=== PATIENT | male | born 1990 | race Caucasian/White ===

== ENCOUNTER 2016-06-05 22:07 | Emergency (ER) | payer BC ==
[2016-06-05] MEDS ORDERED: Ketorolac 60 MG/2 ML SDV IM ONE (22:19)
--- NOTE | 2016-06-05 22:20 | EDM.PDOC ---
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 Past medical history: As per history of present illness and as reviewed below otherwise noncontributory. Surgical history: As per history of present illness and as reviewed below otherwise noncontributory. Social history: No reported history of drug or alcohol abuse. Family history: As per history of present illness and as reviewed below otherwise noncontributory. Physical exam: HEENT: Atraumatic, normocephalic, pupils reactive, negative for conjunctival pallor or scleral icterus, mucous membranes moist, throat clear, neck supple, nontender, trachea midline. Lungs: Clear to auscultation, breath sounds equal bilaterally, chest nontender. Heart: S1S2, regular, negative for clicks, rubs, or JVD. Abdomen: Soft, nondistended, nontender. Negative for masses or hepatosplenomegaly. Negative for costovertebral tenderness. Pelvis: Stable nontender. Genitourinary: Deferred. Rectal: Deferred. Extremities: Atraumatic, negative for cords or calf pain. Neurovascular unremarkable. No radiculopathy with 30 of straight leg raise Neuro: Awake, alert, oriented. Cranial nerves II through XII unremarkable. Cerebellum unremarkable. Motor and sensory unremarkable throughout. Exam nonfocal. No footdrop or saddle anesthesia Diagnostics: [] Lumbar spine 3 views Therapeutics: [] Toradol ordered patient declined Patient declines muscle relaxant Ice ibuprofen Impression: [] Back pain Paraspinous muscle spasm Definitive disposition and diagnosis as appropriate pending reevaluation and review of above. Lower Back Pain Score (Numeric/FACES): 7 - Related Data Allergies Allergy/AdvReac Type Severity Reaction Status Date / Time Anesthesia Allergy Seizure Uncoded 06/05/16 22:11 Home Meds: Home Meds . [No Known Home Meds] 12/09/15 [History] Past Medical History - Past Health History Medical/Surgical History: Denies Medical/Surgical History Social & Family History - Family History Family Medical History: Noncontributory - Tobacco Use Smoking Status *Q: Former Smoker - Recreational Drug Use Recreational Drug Use: No ED ROS GENERAL - Review of Systems Review Of Systems: ROS reveals no pertinent complaints other than HPI. ED EXAM, GENERAL - Physical Exam Exam: See Below Course - Vital Signs Last Recorded V/S: Last Vital Signs Temp 36.7 C 06/05/16 22:12 Pulse 98 06/05/16 22:12 Resp 18 06/05/16 22:12 BP 144/85 H 06/05/16 22:12 Pulse Ox 96 06/05/16 22:12 - Orders/Labs/Meds Orders: Active Orders 24 hr Category Date Time Status Lumbar Spine 2 or 3V [CR] Stat Exams 06/05/16 22:19 Taken Meds: Medications Discontinued Medications Generic Name Dose Route Start Last Admin Trade Name Emily PRN Reason Stop Dose Admin Ketorolac Tromethamine 60 mg 06/05/16 22:19 06/05/16 22:25 Toradol IM 06/05/16 22:20 Not Given ONETIME ONE Departure - Departure Time of Disposition: 23:03 Disposition: Home, Self-Care 01 Condition: good Clinical Impression: Spasm of lumbar paraspinous muscle Forms: ED Department Discharge Additional Instructions: Ice 20 minute intervals 3 times daily 7-10 days Ibuprofen 400 mg 3 times daily 7-10 days Return if symptoms persist or worsen or new concerning symptomatology develops Followup with primary care in 2 weeks The following information is given to patients seen in the emergency department who are being discharged to home. This information is to outline your options for follow-up care. We provide all patients seen in our emergency department with a follow-up referral. The need for follow-up, as well as the timing and circumstances, are variable depending upon the specifics of your emergency department visit. If you don't have a primary care physician on staff, we will provide you with a referral. We always advise you to contact your personal physician following an emergency department visit to inform them of the circumstance of the visit and for follow-up with them and/or the need for any referrals to a consulting specialist. The emergency department will also refer you to a specialist when appropriate. This referral assures that you have the opportunity for follow-up care with a specialist. All of these measure are taken in an effort to provide you with optimal care, which includes your follow-up. Under all circumstances we always encourage you to contact your private physician who remains a resource for coordinating your care. When calling for follow-up care, please make the office aware that this follow-up is from your recent emergency room visit. If for any reason you are refused follow-up, please contact the [facility] emergency department at and asked to speak to the emergency department charge nurse. - My Orders Last 24 Hours: My Active Orders 06/05/16 22:19 Lumbar Spine 2 or 3V [CR] Stat - Assessment/Plan Last 24 Hours: My Active Orders 06/05/16 22:19 Lumbar Spine 2 or 3V [CR] Stat
[2016-06-05 23:34] VITALS: BP 112/67
--- NOTE | 2016-06-06 16:18 | CR ---
EXAM DATE: 06/05/16 PATIENT'S AGE: 26 Patient: RON MORALES Facility: [place], [place] Site . Site : 1990 Study: XRay Spine Lumbar [id number]/2/2017 10:48:18 PM Ordering Physician: Doctor Smith Final Report: INDICATION: pain after carrying an heavy object TECHNIQUE: Lumbar spine 3 views. COMPARISON: None. FINDINGS: Bones: Alignment is normal. No fractures or bone lesions. Joint spaces: Disc spaces are normal. Facet joints are normal. Soft tissues: Negative. IMPRESSION: Negative lumbar spine. Dictated by: Sean Gabriel MD @ 06/05/2016 22:49:22 (Electronic Signature) Report Signed by Proxy and Original Signed Document filed in the Medical Record. [facility]
== END 2016-06-05 23:33 | disposition home or self-care (01) ==
LOC: MW.ED 22:07
DX: M62.830 Muscle spasm of back (principal); M54.5 Low back pain; Z87.891 Personal history of nicotine dependence
CPT/HCPCS: 72100; 72100-26; 99283

== ENCOUNTER 2016-08-18 04:15 | Emergency (ER) | payer BC, OTHER ==
--- NOTE | 2016-08-18 04:46 | EDM.PDOC ---
ED HPI GENERAL MEDICAL PROBLEM - General Chief Complaint: Upper Extremity Injury/Pain Stated Complaint: LEFT ELBOW PAIN Time Seen by Provider: 08/18/16 04:37 - History of Present Illness INITIAL COMMENTS - FREE TEXT/NARRATIVE: HISTORY AND PHYSICAL: History of present illness: The patient is a 26-year-old male who is healthy and was in his usual state of good health when he was at work this morning and a cast iron door swung and hit him on his left elbow and proximal forearm area. The patient did not get hit in the head neck or back and did not fall down pass out or black out. The patient complains of pain and swelling localized to the left elbow and proximal forearm area and has no distal wrist or hand pain and no neurosensory changes distally. He has no proximal humerus pain no condyle tenderness and no clavicular tenderness on the left. The patient has no other extremity complaints and has no chest pain shortness of breath nausea or vomiting. Patient took 600 mg of ibuprofen prior to coming here. The patient is right-hand dominant Review of systems: As per history of present illness and below otherwise all systems reviewed and negative. Past medical history: As per history of present illness and as reviewed below otherwise noncontributory. Surgical history: As per history of present illness and as reviewed below otherwise noncontributory. Social history: No reported history of drug or alcohol abuse. Family history: As per history of present illness and as reviewed below otherwise noncontributory. Physical exam: General: Well-developed well-nourished male who is nontoxic and speaking clearly in the ED. Vital signs have been reviewed by me HEENT: Atraumatic, normocephalic, negative for conjunctival pallor or scleral icterus, mucous membranes moist, throat clear, neck supple, nontender, trachea midline. Lungs: Clear to auscultation, breath sounds equal bilaterally, chest nontender. Heart: S1S2, regular rate and rhythm no overt murmurs Abdomen: Soft, nondistended, nontender. NABS Pelvis: Deferred Genitourinary: Deferred. Rectal: Deferred. Extremities: Atraumatic except for the ulnar surface of the proximal forearm where there is swelling and tenderness and some scattered abrasions as well as tenderness at the olecranon. There are no palpable bony deformities appreciated. There is no radial head tenderness nor is there any distal wrist and tenderness or bony deformities. The legs are negative for cords or calf pain. Neurovascular unremarkable. Neuro: Awake, alert, oriented. Cranial nerves II through XII unremarkable. Cerebellum unremarkable. Motor and sensory unremarkable throughout. Exam nonfocal. Diagnostics: X-ray of the left forearm and elbow Therapeutics: Sling--pt drove himself and took ibuprofen before coming here Impression: Excision of left forearm and elbow status post blunt trauma Definitive disposition and diagnosis as appropriate pending reevaluation and review of above. left elbow Pain Score (Numeric/FACES): 8 - Related Data Allergies Allergy/AdvReac Type Severity Reaction Status Date / Time Anesthesia Allergy Seizure Uncoded 06/05/16 22:11 Home Meds: Home Meds . [No Known Home Meds] 12/09/15 [History] Past Medical History - Past Health History Medical/Surgical History: Denies Medical/Surgical History HEENT History: Reports: None Cardiovascular History: Reports: None Respiratory History: Reports: None Gastrointestinal History: Reports: None Genitourinary History: Reports: None Musculoskeletal History: Reports: None Neurological History: Reports: None Psychiatric History: Reports: None Endocrine/Metabolic History: Reports: None Hematologic History: Reports: None Immunologic History: Reports: None Oncologic (Cancer) History: Reports: None Dermatologic History: Reports: None - Infectious Disease History Infectious Disease History: Reports: None - Past Surgical History HEENT Surgical History: Reports: Tonsillectomy Social & Family History - Family History Family Medical History: Noncontributory - Tobacco Use Smoking Status *Q: Current Every Day Smoker Years of Tobacco use: 1 Packs/Tins Daily: 0.5 - Caffeine Use Caffeine Use: Reports: Soda Caffeine Use Comment: 1cup every other day - Recreational Drug Use Recreational Drug Use: No Review of Systems - Review of Systems Review Of Systems: ROS reveals no pertinent complaints other than HPI. Trauma Exam - Physical Exam Exam: See Below (See dictation) Course - Vital Signs Last Recorded V/S: Last Vital Signs Temp 36.5 C 08/18/16 04:20 Pulse 84 08/18/16 04:20 Resp 16 08/18/16 04:20 BP 138/87 08/18/16 04:20 Pulse Ox 97 08/18/16 04:20 - Orders/Labs/Meds Orders: Active Orders 24 hr Category Date Time Status Elbow Min 3V Lt [CR] Stat Exams 08/18/16 04:37 Taken Forearm 2V Lt [CR] Stat Exams 08/18/16 04:43 Taken DME for Discharge [COMM] Stat Oth 08/18/16 06:09 Ordered Departure - Departure Time of Disposition: 06:10 Disposition: Home, Self-Care 01 Condition: good Clinical Impression: Left elbow contusion Qualifiers: Encounter type: initial encounter Qualified Code(s): S50.02XA - Contusion of left elbow, initial encounter Contusion of left forearm Qualifiers: Encounter type: initial encounter Qualified Code(s): S50.12XA - Contusion of left forearm, initial encounter - Discharge Information Forms: ED Department Discharge Additional Instructions: The following information is given to patients seen in the emergency department who are being discharged to home. This information is to outline your options for follow-up care. We provide all patients seen in our emergency department with a follow-up referral. The need for follow-up, as well as the timing and circumstances, are variable depending upon the specifics of your emergency department visit. If you don't have a primary care physician on staff, we will provide you with a referral. We always advise you to contact your personal physician following an emergency department visit to inform them of the circumstance of the visit and for follow-up with them and/or the need for any referrals to a consulting specialist. The emergency department will also refer you to a specialist when appropriate. This referral assures that you have the opportunity for followup care with a specialist. All of these measure are taken in an effort to provide you with optimal care, which includes your followup. Under all circumstances we always encourage you to contact your private physician who remains a resource for coordinating your care. When calling for followup care, please make the office aware that this follow-up is from your recent emergency room visit. If for any reason you are refused follow-up, please contact the [facility] emergency department at and ask to speak to the emergency department charge nurse. [facility] Specialty Care--Orthopedic clinic Professional Building [address] [place] [id number] [facility] Primary care- Internal Medicine and Family [place] [id number] [place] [id number] Use a sling for support next few days ice and elevate the area. Use over-the- counter Tylenol or ibuprofen for pain or use the Ultram prescribed to you tonight. Return to ER as needed and as discussed. Please followup with orthopedics using resources given to above and with your occupational health safety companion - My Orders Last 24 Hours: My Active Orders 08/18/16 04:37 Elbow Min 3V Lt [CR] Stat 08/18/16 04:43 Forearm 2V Lt [CR] Stat 08/18/16 06:09 DME for Discharge [COMM] Stat - Assessment/Plan Last 24 Hours: My Active Orders 08/18/16 04:37 Elbow Min 3V Lt [CR] Stat 08/18/16 04:43 Forearm 2V Lt [CR] Stat 08/18/16 06:09 DME for Discharge [COMM] Stat
[2016-08-18 06:35] VITALS: BP 128/67
--- NOTE | 2016-08-18 18:17 | CR ---
EXAM DATE: 08/18/16 PATIENT'S AGE: 26 Patient: RON MORALES Facility: [place], [place] Site . Site : 1990 Study: XRay Extremity Left Forearm [id number]/15/2017 5:18:28 AM Ordering Physician: Hector Candelaria Final Report: INDICATION: left elbow pain, hit by a door at work INDICATION: Injury. TECHNIQUE: Left forearm, two views. COMPARISON: None FINDINGS: Bones: Alignment is normal. No fractures or bone lesions. Joint spaces: Unremarkable. Soft tissues: Unremarkable. IMPRESSION: There is no acute bone abnormality. Dictated by Armando Kumar MD @ 08/18/2016 6:05:21 AM Dictated by: Armando Kumar MD @ 08/18/2016 06:05:47 (Electronic Signature) Report Signed by Proxy. [facility]
--- NOTE | 2016-08-18 18:18 | CR ---
EXAM DATE: 08/18/16 PATIENT'S AGE: 26 Patient: RON MORALES Facility: [place], [place] Site . Site : 1990 Study: XRay Extremity Left Elbow [id number]/15/2017 5:18:48 AM Ordering Physician: Hector Candelaria Final Report: INDICATION: left elbow pain, hit by a door at work INDICATION: Pain after injury. TECHNIQUE: Left elbow, three views. COMPARISON: None FINDINGS: Bones: Alignment is normal. No fractures or bone lesions. Joint spaces: Unremarkable. Soft tissues: Unremarkable. IMPRESSION: There is no fracture identified at the left elbow. Dictated by Armando Kumar MD @ 08/18/2016 6:07:07 AM Dictated by: Armando Kumar MD @ 08/18/2016 06:07:16 (Electronic Signature) Report Signed by Proxy. [facility]
== END 2016-08-18 06:30 | disposition home or self-care (01) ==
LOC: MW.ED 04:15
DX: S50.02XA Contusion of left elbow, initial encounter (principal); S50.12XA Contusion of left forearm, initial encounter; F17.210 Nicotine dependence, cigarettes, uncomplicated; Z88.4 Allergy status to anesthetic agent; Z98.890 Other specified postprocedural states; Y99.0 Civilian activity done for income or pay; W22.8XXA Striking against or struck by other objects, initial encounter
CPT/HCPCS: 73080-26-LT; 73080-LT; 73090-26-LT; 73090-LT; 99282; 99283

== ENCOUNTER 2016-09-22 18:18 | Emergency (ER) | payer BC, OTHER ==
--- NOTE | 2016-09-22 18:42 | EDM.PDOC ---
ED HPI GENERAL MEDICAL PROBLEM - General Chief Complaint: General Stated Complaint: PT HAS INFECTION INSIDE MOUTH Time Seen by Provider: 09/22/16 18:40 Source of Information: Reports: Patient History Limitations: Reports: No Limitations - History of Present Illness INITIAL COMMENTS - FREE TEXT/NARRATIVE: History of present illness: [26-year-old male comes in status post cracking his lower left molar approximately #17/18. Patient indicates that he has swelling and pain inside at his gumline Review of systems: As per history of present illness and below otherwise all systems reviewed and negative. Past medical history: As per history of present illness and as reviewed below otherwise noncontributory. Surgical history: As per history of present illness and as reviewed below otherwise noncontributory. Social history: No reported history of drug or alcohol abuse. Family history: As per history of present illness and as reviewed below otherwise noncontributory. Physical exam: HEENT: Left-sided facial swelling with erythema at the gumline normocephalic, pupils reactive, negative for conjunctival pallor or scleral icterus, mucous membranes moist, throat clear, neck supple, nontender, trachea midline. Lungs: Clear to auscultation, breath sounds equal bilaterally, chest nontender. Heart: S1S2, regular, negative for clicks, rubs, or JVD. Abdomen: Soft, nondistended, nontender. Negative for masses or hepatosplenomegaly. Negative for costovertebral tenderness. Pelvis: Stable nontender. Genitourinary: Deferred. Rectal: Deferred. Extremities: Atraumatic, negative for cords or calf pain. Neurovascular unremarkable. Neuro: Awake, alert, oriented. Cranial nerves II through XII unremarkable. Cerebellum unremarkable. Motor and sensory unremarkable throughout. Exam nonfocal. Diagnostics: [] Therapeutics: [] Impression: [Dental abscess,] Plan: [Antibiotic pain med follow-up with dentist] Definitive disposition and diagnosis as appropriate pending reevaluation and review of above. - Related Data Allergies Allergy/AdvReac Type Severity Reaction Status Date / Time Anesthesia Allergy Seizure Uncoded 06/05/16 22:11 Home Meds: Home Meds Amoxicillin/Potassium Clav [Augmentin 875-125 Tablet] 1 each PO BID #20 tablet 09/22/16 [Rx] Past Medical History - Past Health History Medical/Surgical History: Denies Medical/Surgical History HEENT History: Reports: None Cardiovascular History: Reports: None Respiratory History: Reports: None Gastrointestinal History: Reports: None Genitourinary History: Reports: None Musculoskeletal History: Reports: None Neurological History: Reports: None Psychiatric History: Reports: None Endocrine/Metabolic History: Reports: None Hematologic History: Reports: None Immunologic History: Reports: None Oncologic (Cancer) History: Reports: None Dermatologic History: Reports: None - Infectious Disease History Infectious Disease History: Reports: None - Past Surgical History HEENT Surgical History: Reports: Tonsillectomy Social & Family History - Family History Family Medical History: Noncontributory - Tobacco Use Smoking Status *Q: Current Every Day Smoker Years of Tobacco use: 1 Packs/Tins Daily: 0.5 - Caffeine Use Caffeine Use: Reports: Soda Caffeine Use Comment: 1cup every other day - Recreational Drug Use Recreational Drug Use: No ED ROS GENERAL - Review of Systems Review Of Systems: See Below (History of present illness) ED EXAM, GENERAL - Physical Exam Exam: See Below (See history of present illness) Departure - Departure Time of Disposition: 18:41 Disposition: Home, Self-Care 01 Condition: Good Clinical Impression: Dental abscess - Discharge Information Prescriptions: Amoxicillin/Potassium Clav [Augmentin 875-125 Tablet] 1 each PO BID #20 tablet Forms: ED Department Discharge Additional Instructions: The following information is given to patients seen in the emergency department who are being discharged to home. This information is to outline your options for follow-up care. We provide all patients seen in our emergency department with a follow-up referral. The need for follow-up, as well as the timing and circumstances, are variable depending upon the specifics of your emergency department visit. If you don't have a primary care physician on staff, we will provide you with a referral. We always advise you to contact your personal physician following an emergency department visit to inform them of the circumstance of the visit and for follow-up with them and/or the need for any referrals to a consulting specialist. The emergency department will also refer you to a specialist when appropriate. This referral assures that you have the opportunity for follow-up care with a specialist. All of these measure are taken in an effort to provide you with optimal care, which includes your follow-up. Under all circumstances we always encourage you to contact your private physician who remains a resource for coordinating your care. When calling for follow-up care, please make the office aware that this follow-up is from your recent emergency room visit. If for any reason you are refused follow-up, please contact the [facility] Emergency Department at and asked to speak to the emergency department charge nurse. Take medication as directed Follow-up with PCP in 1-2 days Follow-up with the dentist BARBY Return to ED as needed as discussed
[2016-09-22] MEDS ORDERED: Lidocaine 2% Viscous Solution 15 ML Cup PO ONE (18:46)
[2016-09-22] MEDS ORDERED: Benzocaine 20% Topical Spray UD MUCMEM ONE (18:46)
[2016-09-22 19:12] VITALS: BP 130/76
== END 2016-09-22 19:05 | disposition home or self-care (01) ==
LOC: MW.ED 18:18
DX: K04.7 Periapical abscess without sinus (principal); F17.210 Nicotine dependence, cigarettes, uncomplicated; Z98.890 Other specified postprocedural states; Z88.4 Allergy status to anesthetic agent
CPT/HCPCS: 99282; 99283

== ENCOUNTER 2017-12-09 19:25 | Emergency (ER) | payer BC ==
--- NOTE | 2017-12-09 19:36 | EDM.PDOC ---
ED HPI GENERAL MEDICAL PROBLEM - General Chief Complaint: General Stated Complaint: FLU LIKE SYMTOMS Time Seen by Provider: 12/09/17 19:35 Source of Information: Reports: Patient History Limitations: Reports: No Limitations - History of Present Illness INITIAL COMMENTS - FREE TEXT/NARRATIVE: HISTORY AND PHYSICAL: History of present illness: Patient is a 27-year-old male who presents to the emergency room with complaints of cough, chest congestion, chest pain body aches and diarrhea. He states he feels like he has the flu. Has not currently been around anyone who has been sick. Patient is a daily smoker. States his chest pain is "throughout" chest only when he coughs, not constant. Pain does not radiate. He denies any fever, chills, abdominal pain, nausea, vomiting, dysuria or constipation. Review of systems: As per history of present illness and below otherwise all systems reviewed and negative. Past medical history: As per history of present illness and as reviewed below otherwise noncontributory. Surgical history: As per history of present illness and as reviewed below otherwise noncontributory. Social history: No reported history of drug or alcohol abuse. Family history: As per history of present illness and as reviewed below otherwise noncontributory. Physical exam: General: Well-developed and well-nourished 27-year-old male. Alert and oriented. Nontoxic appearing and in no acute distress. HEENT: Atraumatic, normocephalic, pupils equal and reactive bilaterally, negative for conjunctival pallor or scleral icterus, mucous membranes moist, throat clear, neck supple, nontender, TMs normal bilaterally, trachea midline. No drooling or trismus noted. No meningeal signs Lungs: Fine expiratory wheezing noted bilaterally, breath sounds equal bilaterally, chest nontender. Dry cough noted Heart: S1S2, regular rate and rhythm without overt murmur Abdomen: Soft, nondistended, nontender. Negative for masses or hepatosplenomegaly. Negative for costovertebral tenderness. Pelvis: Stable nontender. Genitourinary: Deferred. Rectal: Deferred. Skin: Intact, warm, dry. No lesions or rashes noted. Extremities: Atraumatic, negative for cords or calf pain. Neurovascular unremarkable. Neuro: Awake, alert, oriented. Cranial nerves II through XII unremarkable. Cerebellum unremarkable. Motor and sensory unremarkable throughout. Exam nonfocal. Notes: Patient's symptoms of body aches, diarrhea, and cough do sound viral in nature. His vital signs are stable. Will do a chest x-ray and DuoNeb. Agreeable to plan of care. Chest x-ray shows no evidence of pneumonia or infiltrate. Patient she does feel somewhat better after the DuoNeb. Still does have some wheezing. Due to the patient's symptoms and history of smoking I am going to treat him with a Z-Randall and Medrol Dosepak. When necessary albuterol inhaler. Patient is requesting a note for work for today and tomorrow and is eager to be discharged. Vital signs remain stable. We discussed signs and symptoms that would prompt him to return to the emergency room along with supportive care measures. He voices understanding and is agreeable to plan of care. Denies any further questions or concerns at this time. Diagnostics: CXR Therapeutics: Duo Jostin Prescription: Zpack Medrol Dosepak Albuterol Inhaler Impression: Bronchitis Plan: 1. Please stop smoking. 2. Take the medications as prescribed. 3. Follow-up with your primary care provider in the next 1-2 days. Return to the ED as needed and as discussed. Definitive disposition and diagnosis as appropriate pending reevaluation and review of above. chest Pain Score (Numeric/FACES): 5 - Related Data Allergies Allergy/AdvReac Type Severity Reaction Status Date / Time Anesthesia Allergy Seizure Uncoded 12/09/17 19:40 Home Meds: Home Meds Multivitamin [Multi-Vitamin Daily] 1 each PO DAILY 12/09/17 [History] Past Medical History - Past Health History Medical/Surgical History: Denies Medical/Surgical History HEENT History: Reports: None Cardiovascular History: Reports: None Respiratory History: Reports: None Gastrointestinal History: Reports: None Genitourinary History: Reports: None Musculoskeletal History: Reports: None Neurological History: Reports: None Psychiatric History: Reports: None Endocrine/Metabolic History: Reports: None Hematologic History: Reports: None Immunologic History: Reports: None Oncologic (Cancer) History: Reports: None Dermatologic History: Reports: None - Infectious Disease History Infectious Disease History: Reports: None - Past Surgical History HEENT Surgical History: Reports: Tonsillectomy Social & Family History - Family History Family Medical History: Noncontributory - Caffeine Use Caffeine Use: Reports: Coffee Caffeine Use Comment: 1cup every other day ED ROS GENERAL - Review of Systems Review Of Systems: ROS reveals no pertinent complaints other than HPI. ED EXAM, GENERAL - Physical Exam Exam: See Below (See dictation) Course - Vital Signs Last Recorded V/S: Last Vital Signs Temp 97.5 F 12/09/17 19:35 Pulse 119 H 12/09/17 19:35 Resp 16 12/09/17 19:35 BP 151/97 H 12/09/17 19:35 Pulse Ox 96 12/09/17 20:00 - Orders/Labs/Meds Orders: Active Orders 24 hr Category Date Time Status RT Aerosol Therapy [RC] ASDIRECTED Care 12/09/17 19:39 Active Chest 2V [CR] Stat Exams 12/09/17 19:39 Taken Meds: Medications Discontinued Medications Generic Name Dose Route Start Last Admin Trade Name Freq PRN Reason Stop Dose Admin Albuterol/Ipratropium 3 ml 12/09/17 19:39 12/09/17 19:55 Duoneb 3.0-0.5 Mg/3 Ml NEB 12/09/17 19:40 3 ml ONETIME ONE Administration Departure - Departure Time of Disposition: 20:41 Disposition: Home, Self-Care 01 Clinical Impression: Bronchitis - Discharge Information Instructions: Upper Respiratory Infection, Adult, [id number] Referrals: PCP,None [Primary Care Provider] - Forms: ED Department Discharge Additional Instructions: The following information is given to patients seen in the emergency department who are being discharged to home. This information is to outline your options for follow-up care. We provide all patients seen in our emergency department with a follow-up referral. The need for follow-up, as well as the timing and circumstances, are variable depending upon the specifics of your emergency department visit. If you don't have a primary care physician on staff, we will provide you with a referral. We always advise you to contact your personal physician following an emergency department visit to inform them of the circumstance of the visit and for follow-up with them and/or the need for any referrals to a consulting specialist. The emergency department will also refer you to a specialist when appropriate. This referral assures that you have the opportunity for follow-up care with a specialist. All of these measure are taken in an effort to provide you with optimal care, which includes your follow-up. Under all circumstances we always encourage you to contact your private physician who remains a resource for coordinating your care. When calling for follow-up care, please make the office aware that this follow-up is from your recent emergency room visit. If for any reason you are refused follow-up, please contact the [facility] Emergency Department at and asked to speak to the emergency department charge nurse. [facility] [address] [place] [phone] 1. Please stop smoking. 2. Take the medications as prescribed. 3. Follow-up with your primary care provider in the next 1-2 days. Return to the ED as needed and as discussed. - My Orders Last 24 Hours: My Active Orders 12/09/17 19:39 RT Aerosol Therapy [RC] ASDIRECTED Chest 2V [CR] Stat - Assessment/Plan Last 24 Hours: My Active Orders 12/09/17 19:39 RT Aerosol Therapy [RC] ASDIRECTED Chest 2V [CR] Stat
[2017-12-09] MEDS ORDERED: Albuterol/Ipratropium 3.0-0.5 MG/3 ML Neb Soln NEB ONE (19:39)
[2017-12-09 21:35] VITALS: BP 148/96
--- NOTE | 2017-12-10 09:35 | CR ---
EXAM DATE: 12/09/17 PATIENT'S AGE: 27 Patient: RON MORALES Facility: [place], [place] Site . Site : 1990 Study: XRay Chest [id number]/[id number] 8:21:46 PM Ordering Physician: Doctor Smith Final Report: INDICATION: Cough x3 days TECHNIQUE: Chest 2 views COMPARISON: None FINDINGS: Cardiovascular and mediastinum: Heart size and vasculature are normal in caliber and appearance. Lungs and pleural spaces: Lungs are clear. No sign of infiltrate or mass. No sign of pleural effusion. No pneumothorax. Bones and soft tissues: No significant findings. IMPRESSION: Normal chest. Dictated by Franky Manriquez MD @ Dec 09 2017 8:25PM (Electronic Signature) Report Signed by Proxy. ETELVINA
== END 2017-12-09 20:55 | disposition home or self-care (01) ==
LOC: MW.ED 19:25
DX: J40 Bronchitis, not specified as acute or chronic (principal)
CPT/HCPCS: 71046; 71046-26; 94640; 99284-25; J7620-GY

== ENCOUNTER 2017-12-15 05:51 | Emergency (ER) | payer BC ==
[2017-12-15 06:07] VITALS: BP 147/102
[2017-12-15] MEDS ORDERED: Ketorolac 60 MG/2 ML SDV IM ONE (06:11)
--- NOTE | 2017-12-15 06:17 | EDM.PDOC ---
ED HPI GENERAL MEDICAL PROBLEM - General Chief Complaint: Chest Pain Stated Complaint: CHEST PAINS Time Seen by Provider: 12/15/17 06:03 - History of Present Illness INITIAL COMMENTS - FREE TEXT/NARRATIVE: HISTORY AND PHYSICAL: History of present illness: The patient is a 27-year-old male with no significant cardiac or pulmonary disease but who is a smoker long-standing and was seen here in our emergency department on December 09 for cough body aches viral symptomatology and diffuse chest pain with coughing. He had a negative chest x-ray which I reviewed and he was treated with a Z-Randall on Medrol Dosepak and albuterol inhaler to use as needed. He was not given anything specifically for his cough. He says that he has reduced smoking since that visit and he does feel like he is opening up more with his breathing but he still having intermittent [place] coughing spasms and is now here tonight complaining again of diffuse anterior chest pain more specifically when he is coughing. The patient came from work and had no specific increased chest pain with activity and he has had no fevers abdominal pain nausea vomiting but has still had some loose diarrhea stools. The patient has not been taking anything for the chest discomfort which is similar to what he had on his last visit such as [id number] Tylenol or ibuprofen. He has not called to schedule a follow-up appointment in our clinic. Review of systems: As per history of present illness and below otherwise all systems reviewed and negative. Past medical history: As per history of present illness and as reviewed below otherwise noncontributory. Surgical history: As per history of present illness and as reviewed below otherwise noncontributory. Social history: No reported history of drug or alcohol abuse. Family history: As per history of present illness and as reviewed below otherwise noncontributory. Physical exam: MO: Well-developed well-nourished man who is nontoxic and vital signs have been reviewed by me. He has a hacking cough that if her here in the ED. HEENT: Atraumatic, normocephalic, pupils reactive, negative for conjunctival pallor or scleral icterus, mucous membranes moist, throat clear, neck supple, nontender, trachea midline. Lungs: Clear to auscultation, breath sounds equal bilaterally, chest wall with some mild tenderness with palpation of the costochondral margins bilaterally without crepitus defects or deformities and no wheezing stridor or work of breathing Heart: S1S2, regular rate and rhythm no overt murmurs Abdomen: Soft, nondistended, nontender. Negative for masses or hepatosplenomegaly. NABS Pelvis: Stable nontender. Genitourinary: Deferred. Rectal: Deferred. Extremities: Atraumatic, negative for cords or calf pain. Neurovascular unremarkable. No pedal edema Neuro: Awake, alert, oriented. Cranial nerves II through XII unremarkable. Cerebellum unremarkable. Motor and sensory unremarkable throughout. Exam nonfocal. Diagnostics: EKG Therapeutics: Toradol, spacer I discussed with the patient as he has not had any new fevers and the majority of the symptomatology is similar to that which she had on his last visit we would not repeat the chest x-ray at this time. Also he was treated with an antibiotic at that last visit. I advised him that he does need to take medications to try to help with the chest wall discomfort that he is experiencing and to continue using his albuterol and we will give him a spacer. It appears from my interview with him and my exam that a lot of his chest wall pain and discomfort is due to the coughing so I will give him Tessalon Perles to take during the day and Phenergan with codeine for nighttime. [place] follow- up appointment in the clinic for further care and evaluation. Impression: Chest pain /Chest wall pain/pleuritic chest pain with recent history of bronchitis Definitive disposition and diagnosis as appropriate pending reevaluation and review of above. - Related Data Allergies Allergy/AdvReac Type Severity Reaction Status Date / Time Anesthesia Allergy Seizure Uncoded 12/09/17 19:40 Home Meds: Home Meds Multivitamin [Multi-Vitamin Daily] 1 each PO DAILY 12/09/17 [History] Past Medical History - Past Health History Medical/Surgical History: Denies Medical/Surgical History HEENT History: Reports: None Cardiovascular History: Reports: None Respiratory History: Reports: None Gastrointestinal History: Reports: None Genitourinary History: Reports: None Musculoskeletal History: Reports: None Neurological History: Reports: None Psychiatric History: Reports: None Endocrine/Metabolic History: Reports: None Hematologic History: Reports: None Immunologic History: Reports: None Oncologic (Cancer) History: Reports: None Dermatologic History: Reports: None - Infectious Disease History Infectious Disease History: Reports: None - Past Surgical History HEENT Surgical History: Reports: Tonsillectomy Social & Family History - Family History Family Medical History: Noncontributory - Tobacco Use Smoking Status *Q: Current Every Day Smoker Years of Tobacco use: 10 Packs/Tins Daily: 0.5 - Caffeine Use Caffeine Use: Reports: Coffee Caffeine Use Comment: 1cup every other day ED ROS GENERAL - Review of Systems Review Of Systems: ROS reveals no pertinent complaints other than HPI. ED EXAM, GENERAL - Physical Exam Exam: See Below (See dictation) Course - Vital Signs Last Recorded V/S: Last Vital Signs Temp 36.2 C 12/15/17 06:02 Pulse 83 12/15/17 06:02 Resp 16 12/15/17 06:02 BP 147/102 H 12/15/17 06:02 Pulse Ox 95 12/15/17 06:02 - Orders/Labs/Meds Orders: Active Orders 24 hr Category Date Time Status Communication Order [RC] STAT Care 12/15/17 06:11 Ordered Ketorolac [Toradol] Med 12/15/17 06:11 Once 60 mg IM ONETIME ONE Medication Orders Ketorolac Tromethamine (Toradol) 60 mg IM ONETIME ONE Stop: 12/15/17 06:12 Meds: Medications Generic Name Dose Route Start Last Admin Trade Name Freq PRN Reason Stop Dose Admin Ketorolac Tromethamine 60 mg 12/15/17 06:11 Toradol IM 12/15/17 06:12 ONETIME ONE Departure - Departure Time of Disposition: 06:15 Disposition: Home, Self-Care 01 Condition: Good Clinical Impression: Chest wall pain Chest pain Qualifiers: Chest pain type: unspecified Qualified Code(s): R07.9 - Chest pain, unspecified - Discharge Information Referrals: PCP,None [Primary Care Provider] - Additional Instructions: The following information is given to patients seen in the emergency department who are being discharged to home. This information is to outline your options for follow-up care. We provide all patients seen in our emergency department with a follow-up referral. The need for follow-up, as well as the timing and circumstances, are variable depending upon the specifics of your emergency department visit. If you don't have a primary care physician on staff, we will provide you with a referral. We always advise you to contact your personal physician following an emergency department visit to inform them of the circumstance of the visit and for follow-up with them and/or the need for any referrals to a consulting specialist. The emergency department will also refer you to a specialist when appropriate. This referral assures that you have the opportunity for followup care with a specialist. All of these measure are taken in an effort to provide you with optimal care, which includes your followup. Under all circumstances we always encourage you to contact your private physician who remains a resource for coordinating your care. When calling for followup care, please make the office aware that this follow-up is from your recent emergency room visit. If for any reason you are refused follow-up, please contact the [facility] emergency department at and ask to speak to the emergency department charge nurse. [facility] Primary care- Internal Medicine and Family [address] [id number] Please contact our clinic and schedule a follow-up appointment for further care and reevaluation as we discussed. Please continue to use her albuterol inhaler every 6 hours as needed and if you're starting to have a coughing spasm please use it to try to interrupt the cycle. Use your inhaler with a spacer you have been given today. Use [id number] Motrin/ibuprofen to help with the chest wall discomfort and the inflammation and also use cough medicines as prescribed , Tessalon Perles and Phenergan with codeine. Return to ER as needed and as discussed - My Orders Last 24 Hours: My Active Orders 12/15/17 06:11 Communication Order [RC] STAT Ketorolac [Toradol] 60 mg IM ONETIME ONE - Assessment/Plan Last 24 Hours: My Active Orders 12/15/17 06:11 Communication Order [RC] STAT Ketorolac [Toradol] 60 mg IM ONETIME ONE
== END 2017-12-15 06:34 | disposition home or self-care (01) ==
LOC: MW.ED 05:51
DX: R07.89 Other chest pain (principal); F17.210 Nicotine dependence, cigarettes, uncomplicated; Z88.4 Allergy status to anesthetic agent
CPT/HCPCS: 93005; 96372; 99284; J1885

== ENCOUNTER 2018-05-13 09:40 | Emergency (ER) | payer OTHER, BC ==
[2018-05-13 09:59] VITALS: BP 146/91
--- NOTE | 2018-05-13 10:29 | EDM.PDOC ---
ED HPI GENERAL MEDICAL PROBLEM - General Chief Complaint: Upper Extremity Injury/Pain Stated Complaint: INJURY TO FINGER Time Seen by Provider: 05/13/18 09:55 Source of Information: Reports: Patient History Limitations: Reports: No Limitations - History of Present Illness INITIAL COMMENTS - FREE TEXT/NARRATIVE: History of present illness: []Patient's right middle finger was crushed by a preprinted last night at work. He has no open lesions but has swelling and bruising to the finger. As any numbness or tingling. Review of systems: As per history of present illness and below otherwise all systems reviewed and negative. Past medical history: As per history of present illness and as reviewed below otherwise noncontributory. Surgical history: As per history of present illness and as reviewed below otherwise noncontributory. Social history: No reported history of drug or alcohol abuse. Family history: As per history of present illness and as reviewed below otherwise noncontributory. Physical exam: General: Well developed, well nourished in NAD HEENT: Atraumatic, normocephalic, pupils reactive, negative for conjunctival pallor or scleral icterus, mucous membranes moist, throat clear, neck supple, nontender, trachea midline. Lungs: Clear to auscultation, breath sounds equal bilaterally, chest nontender. Heart: S1S2, regular, negative for clicks, rubs, or JVD. Abdomen: NABS, Soft, nondistended, nontender. Negative for masses or hepatosplenomegaly. Negative for costovertebral tenderness. Pelvis: Stable nontender. Genitourinary: Deferred. Rectal: Deferred. Extremities: Atraumatic, negative for cords or calf pain. Neurovascular unremarkable. Neuro: Awake, alert, oriented. Cranial nerves II through XII unremarkable. Cerebellum unremarkable. Motor and sensory unremarkable throughout. Exam nonfocal. Skin:warm and dry Diagnostics: Extremity right middle finger no fracture dislocation Therapeutics: Finger splint ED Course: Remarkable Impression: R middle finger contusion Prescriptions: None Plan: Tylenol, Motrin, ice elevation for pain did Definitive disposition and diagnosis as appropriate pending reevaluation and review of above. Right Finger-Middle Pain Score (Numeric/FACES): 3 - Related Data Allergies Allergy/AdvReac Type Severity Reaction Status Date / Time Anesthesia Allergy Seizure Uncoded 05/13/18 09:58 Home Meds: Home Meds . [No Known Home Meds] 05/13/18 [History] Past Medical History - Past Health History Medical/Surgical History: Denies Medical/Surgical History HEENT History: Reports: None Cardiovascular History: Reports: None Respiratory History: Reports: None Gastrointestinal History: Reports: None Genitourinary History: Reports: None Musculoskeletal History: Reports: None Neurological History: Reports: None Psychiatric History: Reports: Suicidal Ideation Endocrine/Metabolic History: Reports: None Hematologic History: Reports: None Immunologic History: Reports: None Oncologic (Cancer) History: Reports: None Dermatologic History: Reports: None - Infectious Disease History Infectious Disease History: Reports: Chicken Pox - Past Surgical History HEENT Surgical History: Reports: Tonsillectomy Social & Family History - Family History Family Medical History: Noncontributory - Tobacco Use Smoking Status *Q: Current Every Day Smoker Years of Tobacco use: 11 Packs/Tins Daily: 0.5 - Caffeine Use Caffeine Use: Reports: Coffee Caffeine Use Comment: 1cup every other day - Recreational Drug Use Recreational Drug Use: No Review of Systems - Review of Systems Review Of Systems: ROS reveals no pertinent complaints other than HPI. ED EXAM, GENERAL - Physical Exam Exam: See Below (The history of present illness) Course - Vital Signs Last Recorded V/S: Last Vital Signs Temp 97.1 F 05/13/18 09:55 Pulse 79 05/13/18 09:55 Resp 18 05/13/18 09:55 BP 146/91 H 05/13/18 09:55 Pulse Ox 98 05/13/18 09:55 Departure - Departure Time of Disposition: 11:12 Disposition: Home, Self-Care 01 Condition: Good Clinical Impression: Contusion of finger of right hand Qualifiers: Encounter type: initial encounter - Discharge Information *PRESCRIPTION DRUG MONITORING PROGRAM REVIEWED*: No *COPY OF PRESCRIPTION DRUG MONITORING REPORT IN PATIENT AUTUMN: No Referrals: PCP,None [Primary Care Provider] - Forms: ED Department Discharge Additional Instructions: The following information is given to patients seen in the emergency department who are being discharged to home. This information is to outline your options for follow-up care. We provide all patients seen in our emergency department with a follow-up referral. The need for follow-up, as well as the timing and circumstances, are variable depending upon the specifics of your emergency department visit. If you don't have a primary care physician on staff, we will provide you with a referral. We always advise you to contact your personal physician following an emergency department visit to inform them of the circumstance of the visit and for follow-up with them and/or the need for any referrals to a consulting specialist. The emergency department will also refer you to a specialist when appropriate. This referral assures that you have the opportunity for follow-up care with a specialist. All of these measure are taken in an effort to provide you with optimal care, which includes your follow-up. Under all circumstances we always encourage you to contact your private physician who remains a resource for coordinating your care. When calling for follow-up care, please make the office aware that this follow-up is from your recent emergency room visit. If for any reason you are refused follow-up, please contact the [facility] Emergency Department at and asked to speak to the emergency department charge nurse. Ice, Motrin Tylenol for pain, follow-up with primary care as needed. [facility] [address] [place] [phone]
--- NOTE | 2018-05-13 10:53 | CR ---
EXAMINATION: Right hand, third digit HISTORY: Crush injury COMPARISON: None TECHNIQUE: 3 views FINDINGS/IMPRESSION: There is no acute osseous abnormality, dislocation, or fracture. Bone mineralization and joint spaces are preserved. No soft tissue swelling or foreign body.
== END 2018-05-13 11:28 | disposition home or self-care (01) ==
LOC: MW.ED 09:40
DX: S60.031A Contusion of right middle finger without damage to nail, initial encounter (principal); F17.210 Nicotine dependence, cigarettes, uncomplicated; Z88.4 Allergy status to anesthetic agent; W22.8XXA Striking against or struck by other objects, initial encounter; Y99.0 Civilian activity done for income or pay
CPT/HCPCS: 73140-26-F7; 73140-F7; 99283

== ENCOUNTER 2018-05-28 23:45 | Emergency (ER) | payer BC, OTHER ==
[2018-05-29 00:02] VITALS: BP 142/101
--- NOTE | 2018-05-29 00:03 | EDM.PDOC ---
ED HPI GENERAL MEDICAL PROBLEM - General Chief Complaint: General Stated Complaint: DIZZY,COUGH Time Seen by Provider: 05/29/18 00:02 Source of Information: Reports: Patient - History of Present Illness INITIAL COMMENTS - FREE TEXT/NARRATIVE: HISTORY AND PHYSICAL: History of present illness: [Patient has sore throat and cough increasing in severity over the last week no drooling trismus or muffled voice No retractions or wheeze ] Review of systems: As per history of present illness and below otherwise all systems reviewed and negative. Past medical history: As per history of present illness and as reviewed below otherwise noncontributory. Surgical history: As per history of present illness and as reviewed below otherwise noncontributory. Social history: No reported history of drug or alcohol abuse. Family history: As per history of present illness and as reviewed below otherwise noncontributory. Physical exam: HEENT: Atraumatic, normocephalic, pupils reactive, negative for conjunctival pallor or scleral icterus, mucous membranes moist, throat clear, neck supple, nontender, trachea midline. moderate erythema no exudates Lungs: Clear to auscultation, breath sounds equal bilaterally, chest nontender. Heart: S1S2, regular, negative for clicks, rubs, or JVD. Abdomen: Soft, nondistended, nontender. Negative for masses or hepatosplenomegaly. Negative for costovertebral tenderness. Pelvis: Stable nontender. Genitourinary: Deferred. Rectal: Deferred. Extremities: Atraumatic, negative for cords or calf pain. Neurovascular unremarkable. Neuro: Awake, alert, oriented. Cranial nerves II through XII unremarkable. Cerebellum unremarkable. Motor and sensory unremarkable throughout. Exam nonfocal. Diagnostics: [Strep influenza Chest x-ray plain film ] Therapeutics: [ Z-Randall HFA ] Impression: [] Pharyngitis Bronchitis Definitive disposition and diagnosis as appropriate pending reevaluation and review of above. Throat Pain Score (Numeric/FACES): 7 - Related Data Allergies Allergy/AdvReac Type Severity Reaction Status Date / Time Anesthesia Allergy Seizure Uncoded 05/29/18 00:01 Home Meds: Home Meds . [No Known Home Meds] 05/13/18 [History] Past Medical History - Past Health History Medical/Surgical History: Denies Medical/Surgical History HEENT History: Reports: None Cardiovascular History: Reports: None Respiratory History: Reports: None Gastrointestinal History: Reports: None Genitourinary History: Reports: None Musculoskeletal History: Reports: None Neurological History: Reports: None Psychiatric History: Reports: Suicidal Ideation Endocrine/Metabolic History: Reports: None Hematologic History: Reports: None Immunologic History: Reports: None Oncologic (Cancer) History: Reports: None Dermatologic History: Reports: None - Infectious Disease History Infectious Disease History: Reports: Chicken Pox - Past Surgical History HEENT Surgical History: Reports: Tonsillectomy Social & Family History - Family History Family Medical History: Noncontributory - Caffeine Use Caffeine Use: Reports: Coffee Caffeine Use Comment: 1cup every other day ED ROS GENERAL - Review of Systems Review Of Systems: See Below ED EXAM, GENERAL - Physical Exam Exam: See Below Course - Vital Signs Last Recorded V/S: Last Vital Signs Temp 98.1 F 05/28/18 23:57 Pulse 99 05/28/18 23:57 Resp 18 05/28/18 23:57 BP 142/101 H 05/28/18 23:57 Pulse Ox 97 05/28/18 23:57 - Orders/Labs/Meds Orders: Active Orders 24 hr Category Date Time Status Chest 2V [CR] Stat Exams 05/29/18 00:02 Taken INFLUENZA A+B AG SCREEN [RM] Stat Lab 05/29/18 00:05 Received Departure - Departure Time of Disposition: 00:37 Disposition: Home, Self-Care 01 Condition: Good Clinical Impression: Strep pharyngitis, Bronchitis - Discharge Information Referrals: PCP,None [Primary Care Provider] - Forms: ED Department Discharge Additional Instructions: The following information is given to patients seen in the emergency department who are being discharged to home. This information is to outline your options for follow-up care. We provide all patients seen in our emergency department with a follow-up referral. The need for follow-up, as well as the timing and circumstances, are variable depending upon the specifics of your emergency department visit. If you don't have a primary care physician on staff, we will provide you with a referral. We always advise you to contact your personal physician following an emergency department visit to inform them of the circumstance of the visit and for follow-up with them and/or the need for any referrals to a consulting specialist. The emergency department will also refer you to a specialist when appropriate. This referral assures that you have the opportunity for follow-up care with a specialist. All of these measure are taken in an effort to provide you with optimal care, which includes your follow-up. Under all circumstances we always encourage you to contact your private physician who remains a resource for coordinating your care. When calling for follow-up care, please make the office aware that this follow-up is from your recent emergency room visit. If for any reason you are refused follow-up, please contact the [facility] emergency department at and asked to speak to the emergency department charge nurse. - My Orders Last 24 Hours: My Active Orders 05/29/18 00:02 Chest 2V [CR] Stat 05/29/18 00:05 INFLUENZA A+B AG SCREEN [RM] Stat - Assessment/Plan Last 24 Hours: My Active Orders 05/29/18 00:02 Chest 2V [CR] Stat 05/29/18 00:05 INFLUENZA A+B AG SCREEN [RM] Stat
--- NOTE | 2018-05-29 00:37 | CR ---
INDICATION: Cough and shortness of breath TECHNIQUE: Chest 2 views. COMPARISON: December 09, 2017 FINDINGS: Cardiovascular and mediastinum: Heart size and vasculature are normal in caliber and appearance. Mediastinum is within normal limits. Lungs and pleural spaces: Lungs are clear. No sign of infiltrate or mass. No sign of pleural effusion. No pneumothorax. Bones and soft tissues: No significant findings. IMPRESSION: No sign of acute disease. Dictated by Nisha Rhodes MD @ May 29 2018 12:33AM Signed by Dr. Nisha Rhodes @ May 29 2018 12:34AM
== END 2018-05-29 01:15 | disposition home or self-care (01) ==
LOC: MW.ED 23:45
DX: J02.0 Streptococcal pharyngitis (principal); J40 Bronchitis, not specified as acute or chronic
CPT/HCPCS: 71046; 71046-26; 87804; 87880-QW; 99283

== ENCOUNTER 2018-05-31 23:02 | Emergency (ER) | payer BC ==
--- NOTE | 2018-05-31 23:36 | EDM.PDOC ---
ED HPI GENERAL MEDICAL PROBLEM - General Chief Complaint: ENT Problem Stated Complaint: PT HAS INFECTION INSIDE MOUTH Time Seen by Provider: 05/31/18 23:32 Source of Information: Reports: Patient - History of Present Illness INITIAL COMMENTS - FREE TEXT/NARRATIVE: HISTORY AND PHYSICAL: History of present illness: [Patient treated for sore throat on day 4 of Z-Randall he presents with abscess ulcers on the roof of his mouth does have some white lesions possibly consistent with thrush but his main symptom is stomatitis secondary to the abscess ulcers No fever nausea vomiting chills sweats He has gain benefit from Orajel mouthwash ] Review of systems: As per history of present illness and below otherwise all systems reviewed and negative. Past medical history: As per history of present illness and as reviewed below otherwise noncontributory. Surgical history: As per history of present illness and as reviewed below otherwise noncontributory. Social history: No reported history of drug or alcohol abuse. Family history: As per history of present illness and as reviewed below otherwise noncontributory. Physical exam: HEENT: Atraumatic, normocephalic, pupils reactive, negative for conjunctival pallor or scleral icterus, mucous membranes moist, throat clear, neck supple, nontender, trachea midline. This ulcers noted on the roof of his mouth Lungs: Clear to auscultation, breath sounds equal bilaterally, chest nontender. Heart: S1S2, regular, negative for clicks, rubs, or JVD. Abdomen: Soft, nondistended, nontender. Negative for masses or hepatosplenomegaly. Negative for costovertebral tenderness. Pelvis: Stable nontender. Genitourinary: Deferred. Rectal: Deferred. Extremities: Atraumatic, negative for cords or calf pain. Neurovascular unremarkable. Neuro: Awake, alert, oriented. Cranial nerves II through XII unremarkable. Cerebellum unremarkable. Motor and sensory unremarkable throughout. Exam nonfocal. Diagnostics: []Clinical Therapeutics: []Complete Z-Randall Continue Orajel mouthwashERM nystatin Impression: apthus ulcers Stomatitis] Definitive disposition and diagnosis as appropriate pending reevaluation and review of above. mouth area Pain Score (Numeric/FACES): 8 - Related Data Allergies Allergy/AdvReac Type Severity Reaction Status Date / Time Anesthesia Allergy Seizure Uncoded 05/31/18 23:12 Home Meds: Home Meds Z-Pack 1 tab PO DAILY 05/31/18 [History] Past Medical History - Past Health History Medical/Surgical History: Denies Medical/Surgical History HEENT History: Reports: None Cardiovascular History: Reports: None Respiratory History: Reports: None Gastrointestinal History: Reports: None Genitourinary History: Reports: None Musculoskeletal History: Reports: None Neurological History: Reports: None Psychiatric History: Reports: Anxiety, Depression, Suicidal Ideation Endocrine/Metabolic History: Reports: None Hematologic History: Reports: None Immunologic History: Reports: None Oncologic (Cancer) History: Reports: None Dermatologic History: Reports: None - Infectious Disease History Infectious Disease History: Reports: Chicken Pox - Past Surgical History Head Surgeries/Procedures: Reports: None HEENT Surgical History: Reports: Tonsillectomy Social & Family History - Family History Family Medical History: Noncontributory - Tobacco Use Smoking Status *Q: Current Every Day Smoker Years of Tobacco use: 12 Packs/Tins Daily: 0.5 - Caffeine Use Caffeine Use: Reports: Coffee Caffeine Use Comment: 1cup every other day - Recreational Drug Use Recreational Drug Use: No ED ROS GENERAL - Review of Systems Review Of Systems: See Below ED EXAM, GENERAL - Physical Exam Exam: See Below Course - Vital Signs Last Recorded V/S: Last Vital Signs Temp 98 F 05/31/18 23:12 Pulse 96 05/31/18 23:12 Resp 18 05/31/18 23:12 BP 144/98 H 05/31/18 23:12 Pulse Ox 98 05/31/18 23:12 Departure - Departure Time of Disposition: 23:34 Disposition: Home, Self-Care 01 Condition: Good Clinical Impression: Aphthous ulcer of mouth - Discharge Information Referrals: PCP,None [Primary Care Provider] - Additional Instructions: Continue Orajel mouthwash as needed Nystatin swish and swallow 5 mL by mouth 3 times a day 10 days Complete Z-Randall as directed PRIMARY care in 2 weeks sooner as needed [facility] - Primary Care [address] [place] [id number] The following information is given to patients seen in the emergency department who are being discharged to home. This information is to outline your options for follow-up care. We provide all patients seen in our emergency department with a follow-up referral. The need for follow-up, as well as the timing and circumstances, are variable depending upon the specifics of your emergency department visit. If you don't have a primary care physician on staff, we will provide you with a referral. We always advise you to contact your personal physician following an emergency department visit to inform them of the circumstance of the visit and for follow-up with them and/or the need for any referrals to a consulting specialist. The emergency department will also refer you to a specialist when appropriate. This referral assures that you have the opportunity for follow-up care with a specialist. All of these measure are taken in an effort to provide you with optimal care, which includes your follow-up. Under all circumstances we always encourage you to contact your private physician who remains a resource for coordinating your care. When calling for follow-up care, please make the office aware that this follow-up is from your recent emergency room visit. If for any reason you are refused follow-up, please contact the [facility] emergency department at and asked to speak to the emergency department charge nurse.
[2018-05-31 23:54] VITALS: BP 146/88
== END 2018-05-31 23:45 | disposition home or self-care (01) ==
LOC: MW.ED 23:02
DX: K12.0 Recurrent oral aphthae (principal); F17.210 Nicotine dependence, cigarettes, uncomplicated; Z98.890 Other specified postprocedural states; Z88.4 Allergy status to anesthetic agent
CPT/HCPCS: 99282

== ENCOUNTER 2018-06-29 17:18 | Emergency (ER) | payer BC ==
[2018-06-29] MEDS ORDERED: Diphtheria,Pertussis(Acell),Tetanus Vaccine 0.5 ML Syringe IM ONE (17:32)
[2018-06-29 17:47] VITALS: BP 138/80
[2018-06-29] MEDS ORDERED: Bupivacaine 0.25% 10 ML SDV INJECT ONE (19:01)
--- NOTE | 2018-06-29 19:02 | EDM.PDOC ---
ED HPI GENERAL MEDICAL PROBLEM - General Chief Complaint: Laceration Stated Complaint: RIGHT THUMB SMASHED Time Seen by Provider: 06/29/18 19:02 Source of Information: Reports: Patient History Limitations: Reports: No Limitations - History of Present Illness INITIAL COMMENTS - FREE TEXT/NARRATIVE: HISTORY AND PHYSICAL: History of present illness: Patient is a 28-year-old male presents to the ED today with concern of crush injury to right thumb. He was working with pipe and crushed his thumb between another pipe yesterday. He has full use and sensation of the whole hand. He states his thumb nail is coming off the other than that does not have any he is not up-to-date on his tetanus. He denies fever or chills. Review of systems: As per history of present illness and below otherwise all systems reviewed and negative. Past medical history: As per history of present illness and as reviewed below otherwise noncontributory. Surgical history: As per history of present illness and as reviewed below otherwise noncontributory. Social history: No reported history of drug or alcohol abuse. Family history: As per history of present illness and as reviewed below otherwise noncontributory. Physical exam: General: Patient sitting comfortably in no acute distress and nontoxic appearing HEENT: Atraumatic, normocephalic, pupils reactive, negative for conjunctival pallor or scleral icterus, mucous membranes moist, throat clear, neck supple, nontender, trachea midline. No meningeal signs. Lungs: Clear to auscultation, breath sounds equal bilaterally, chest nontender. Heart: S1S2, regular, negative for clicks, rubs, or overt murmur. Abdomen: Soft, nondistended, nontender. Negative for masses or hepatosplenomegaly. Negative for costovertebral tenderness. No rigidity, rebound , guarding. Pelvis: Stable nontender. Genitourinary: Deferred. Rectal: Deferred. Extremities: On patient's right hand, his thumb nail bed is lifted. He does have full range of motion of all fingers. Radial pulse grossly intact. Capillary refill less than 2 seconds. Negative for cords or calf pain. Neurovascular unremarkable. Neuro: Awake, alert, oriented. Cranial nerves II through XII unremarkable. Cerebellum unremarkable. Motor and sensory unremarkable throughout. Exam nonfocal. Diagnostics: Hand x-ray, right Therapeutics: Bupivacaine, Ancef Prescriptions: Keflex Hydrocodone Impression: Open tuft fracture Nail injury Plan: 1. Take medication as prescribed. Alternate Tylenol and ibuprofen as directed for pain and discomfort. 2. Follow-up with the hand specialist, Dr. Canales and your primary care provider as discussed. 3. Return to the ED as needed and as discussed. Definitive disposition and diagnosis as appropriate pending reevaluation and review of above. Right Finger-Thumb Pain Score (Numeric/FACES): 4 - Related Data Allergies Allergy/AdvReac Type Severity Reaction Status Date / Time Anesthesia Allergy Seizure Uncoded 06/29/18 17:47 Home Meds: Home Meds . [No Known Home Meds] 06/29/18 [History] Past Medical History - Past Health History Medical/Surgical History: Denies Medical/Surgical History HEENT History: Reports: None Cardiovascular History: Reports: None Respiratory History: Reports: None Gastrointestinal History: Reports: None Genitourinary History: Reports: None Musculoskeletal History: Reports: None Neurological History: Reports: None Psychiatric History: Reports: Anxiety, Depression, Suicidal Ideation Endocrine/Metabolic History: Reports: None Hematologic History: Reports: None Immunologic History: Reports: None Oncologic (Cancer) History: Reports: None Dermatologic History: Reports: None - Infectious Disease History Infectious Disease History: Reports: Chicken Pox - Past Surgical History Head Surgeries/Procedures: Reports: None HEENT Surgical History: Reports: Tonsillectomy Social & Family History - Family History Family Medical History: Noncontributory - Tobacco Use Smoking Status *Q: Current Every Day Smoker Years of Tobacco use: 12 Packs/Tins Daily: 1 - Caffeine Use Caffeine Use: Reports: Coffee Caffeine Use Comment: 1cup every other day - Recreational Drug Use Recreational Drug Use: No ED ROS GENERAL - Review of Systems Review Of Systems: ROS reveals no pertinent complaints other than HPI. ED EXAM, SKIN/RASH Exam: See Below (see dictation) ED SKIN PROCEDURES - Additional/Other Procedure(s) Other (Free Text) Procedure(s): Area was cleaned and sterilized with chlorhexidine. Digital block was performed with bupivacaine. Area was prepped and draped in normal fashion. Nail bed was repaired with 4-0 chromic gut (#2 sutures). Nail was reinserted and secured using 4-0 Ethilon (#2 sutures). Course - Vital Signs Last Recorded V/S: Last Vital Signs Temp 99.3 F 06/29/18 17:43 Pulse 79 06/29/18 17:43 Resp 18 06/29/18 17:43 BP 138/80 06/29/18 17:43 Pulse Ox 93 L 06/29/18 17:43 - Orders/Labs/Meds Orders: Active Orders 24 hr Category Date Time Status Vaccines to be Administered [RC] PER UNIT ROUTINE Care 06/29/18 17:32 Active Hand Comp Min 3V Rt [CR] Stat Exams 06/29/18 18:50 Taken Meds: Medications Discontinued Medications Generic Name Dose Route Start Last Admin Trade Name Emily PRN Reason Stop Dose Admin Bupivacaine HCl 5 ml 06/29/18 19:01 06/29/18 19:18 Sensorcaine-Mpf 0.25% INJECT 06/29/18 19:02 10 ml ONETIME ONE Administration Cefazolin Sodium 1 gm 06/29/18 19:19 Ancef IM 06/29/18 19:20 ONETIME ONE Diphtheria/Tetanus/Acell Pertussis 0.5 ml 06/29/18 17:32 06/29/18 19:18 Adacel IM 06/29/18 17:33 0.5 ml .ONCE ONE Administration Sterile Water Confirm 06/29/18 19:25 Sterile Water For Injection Administered 06/29/18 19:26 Dose 20 mls @ as directed .ROUTE .STK-MED ONE Departure - Departure Time of Disposition: 19:55 Disposition: Home, Self-Care 01 Clinical Impression: Open fracture of tuft of distal phalanx of right thumb, Nailbed injury - Discharge Information Instructions: Nail Bed Injury, [id number] Referrals: PCP,None [Primary Care Provider] - Forms: ED Department Discharge Additional Instructions: The following information is given to patients seen in the emergency department who are being discharged to home. This information is to outline your options for follow-up care. We provide all patients seen in our emergency department with a follow-up referral. The need for follow-up, as well as the timing and circumstances, are variable depending upon the specifics of your emergency department visit. If you don't have a primary care physician on staff, we will provide you with a referral. We always advise you to contact your personal physician following an emergency department visit to inform them of the circumstance of the visit and for follow-up with them and/or the need for any referrals to a consulting specialist. The emergency department will also refer you to a specialist when appropriate. This referral assures that you have the opportunity for follow-up care with a specialist. All of these measure are taken in an effort to provide you with optimal care, which includes your follow-up. Under all circumstances we always encourage you to contact your private physician who remains a resource for coordinating your care. When calling for follow-up care, please make the office aware that this follow-up is from your recent emergency room visit. If for any reason you are refused follow-up, please contact the [facility] Emergency Department at and asked to speak to the emergency department charge nurse. [facility] [address] [place] [id number] [address] [address] [facility] - Pl[facility] Professional [facility] [address] [place] [address], [address] [place] [address] 1. Take medication as prescribed. Alternate Tylenol and ibuprofen as directed for pain and discomfort. 2. Follow-up with the hand specialist, Dr. Canales and your primary care provider as discussed. 3. Return to the ED as needed and as discussed. - My Orders Last 24 Hours: My Active Orders 06/29/18 18:50 Hand Comp Min 3V Rt [CR] Stat - Assessment/Plan Last 24 Hours: My Active Orders 06/29/18 18:50 Hand Comp Min 3V Rt [CR] Stat
[2018-06-29] MEDS ORDERED: ceFAZolin 1 GM Vial IM ONE (19:19)
[2018-06-29] MEDS ORDERED: Water For Injection, Sterile 20 ML ONE (19:25)
--- NOTE | 2018-06-29 19:53 | CR ---
Indication: Pain Technique: Right hand 3 views. Comparison: None Findings: Bones: Tuft fracture right 1st digit with 2 millimeters distraction. Joint spaces: No dislocation. Soft tissues: Mild thumb soft tissue swelling. Impression: Tuft fracture of the right thumb with minimal distraction as above. Dictated by Clement Ku MD @ Jun 29 2018 7:48PM Signed by Dr. Clement Ku @ Jun 29 2018 7:50PM
== END 2018-06-29 20:16 | disposition home or self-care (01) ==
LOC: MW.ED 17:18
DX: S62.521B Displaced fracture of distal phalanx of right thumb, initial encounter for open fracture (principal); Z23 Encounter for immunization; F17.210 Nicotine dependence, cigarettes, uncomplicated; Z88.4 Allergy status to anesthetic agent; W23.1XXA Caught, crushed, jammed, or pinched between stationary objects, initial encounter
CPT/HCPCS: 11760; 73130; 90471; 90715; 96372; 99283; J0690; J3490; 99282

== ENCOUNTER 2018-10-29 12:11 | Emergency (ER) | payer SELFPAY ==
[2018-10-29] MEDS ORDERED: Sodium Chloride 0.9% 2.5 ML Syringe FLUSH PRN (12:17)
[2018-10-29] MEDS ORDERED: Sodium Chloride 0.9% 10 ML Syringe FLUSH PRN (12:17)
[2018-10-29] MEDS ORDERED: Sodium Chloride 0.9% 1,000 ML IV ONE (12:17)
--- NOTE | 2018-10-29 12:19 | EDM.PDOC ---
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 Past medical history: As per history of present illness and as reviewed below otherwise noncontributory. Surgical history: As per history of present illness and as reviewed below otherwise noncontributory. Social history: No reported history of drug or alcohol abuse. Family history: As per history of present illness and as reviewed below otherwise noncontributory. Physical exam: HEENT: Atraumatic, normocephalic, pupils reactive, negative for conjunctival pallor or scleral icterus, mucous membranes moist, throat clear, neck supple, nontender, trachea midline. Lungs: Clear to auscultation, breath sounds equal bilaterally, chest nontender. Heart: S1S2, regular, negative for clicks, rubs, or JVD. Abdomen: Soft, nondistended, nontender. Negative for masses or hepatosplenomegaly. Negative for costovertebral tenderness. Pelvis: Stable nontender. Genitourinary: Deferred. Rectal: Deferred. Extremities: Atraumatic, negative for cords or calf pain. Neurovascular unremarkable. Neuro: Awake, alert, oriented. Cranial nerves II through XII unremarkable. Cerebellum unremarkable. Motor and sensory unremarkable throughout. Exam nonfocal. Diagnostics: CBC CMP troponin chest x-ray EKG UA Therapeutics: Saline 1 L bolus Impression: #1 weakness #2 rule out heat illness Definitive disposition and diagnosis as appropriate pending reevaluation and review of above. - Related Data Allergies Allergy/AdvReac Type Severity Reaction Status Date / Time Anesthesia Allergy Seizure Uncoded 06/29/18 17:47 Home Meds: Home Meds . [No Known Home Meds] 10/29/18 [History] Past Medical History - Past Health History Medical/Surgical History: Denies Medical/Surgical History HEENT History: Reports: None Cardiovascular History: Reports: None Respiratory History: Reports: None Gastrointestinal History: Reports: None Genitourinary History: Reports: None Musculoskeletal History: Reports: None Neurological History: Reports: None Psychiatric History: Reports: Anxiety, Depression, Suicidal Ideation Endocrine/Metabolic History: Reports: None Hematologic History: Reports: None Immunologic History: Reports: None Oncologic (Cancer) History: Reports: None Dermatologic History: Reports: None - Infectious Disease History Infectious Disease History: Reports: Chicken Pox - Past Surgical History Head Surgeries/Procedures: Reports: None HEENT Surgical History: Reports: Tonsillectomy Social & Family History - Family History Family Medical History: Noncontributory - Caffeine Use Caffeine Use: Reports: Coffee Caffeine Use Comment: 1cup every other day ED ROS GENERAL - Review of Systems Review Of Systems: ROS reveals no pertinent complaints other than HPI. ED EXAM, GENERAL - Physical Exam Exam: See Below (See dictation) Course - Vital Signs Last Recorded V/S: Last Vital Signs Temp 35.9 C 10/29/18 12:14 Pulse 82 10/29/18 12:14 Resp 16 10/29/18 12:14 BP 136/86 10/29/18 12:14 Pulse Ox 96 10/29/18 12:14 - Orders/Labs/Meds Orders: Active Orders 24 hr Category Date Time Status Cardiac Monitoring [RC] . DIRECTED Care 10/29/18 12:17 Active EKG Documentation Completion [RC] STAT Care 10/29/18 12:17 Active UA RFX BINH AND CULT IF INDIC [URIN] Stat Lab 10/29/18 12:17 Ordered Sodium Chloride 0.9% [Saline Flush] Med 10/29/18 12:17 Active 10 ml FLUSH ASDIRECTED PRN Sodium Chloride 0.9% [Saline Flush] Med 10/29/18 12:17 Active 2.5 ml FLUSH ASDIRECTED PRN Saline Lock Insert [OM.PC] Stat Oth 10/29/18 12:17 Ordered Medication Orders Sodium Chloride (Saline Flush) 10 ml FLUSH ASDIRECTED PRN PRN Reason: Keep Vein Open Last Admin: 10/29/18 12:28 Dose: 10 ml Sodium Chloride (Saline Flush) 2.5 ml FLUSH ASDIRECTED PRN PRN Reason: Keep Vein Open Last Admin: 10/29/18 12:28 Dose: 2.5 ml Labs: Laboratory Tests 10/29/18 10/29/18 10/29/18 Range/Units 12:24 12:24 12:24 WBC 9.87 (4.0-11.0) K/uL RBC 5.17 (4.50-5.90) M/uL Hgb 14.9 (13.0-17.0) g/dL Hct 43.3 (38.0-50.0) % MCV 83.8 (80.0-98.0) fL MCH 28.8 (27.0-32.0) pg MCHC 34.4 (31.0-37.0) g/dL RDW Std Deviation 40.3 (28.0-62.0) fl RDW Coeff of Rachid 13 (11.0-15.0) % Plt Count 246 (150-400) K/uL MPV 9.20 (7.40-12.00) fL Neut % (Auto) 64.1 (48.0-80.0) % Lymph % (Auto) 26.6 (16.0-40.0) % Davidson % (Auto) 5.6 (0.0-15.0) % Eos % (Auto) 3.4 (0.0-7.0) % Baso % (Auto) 0.3 (0.0-1.5) % Neut # (Auto) 6.3 H (1.4-5.7) K/uL Lymph # (Auto) 2.6 H (0.6-2.4) K/uL Davidson # (Auto) 0.6 (0.0-0.8) K/uL Eos # (Auto) 0.3 (0.0-0.7) K/uL Baso # (Auto) 0.0 (0.0-0.1) K/uL Nucleated RBC % 0.0 /100WBC Nucleated RBCs # 0 K/uL ABG Carboxyhemoglobin 3.9 (0-15) % Sodium 140 (136-148) mmol/L Potassium 3.8 (3.5-5.1) mmol/L Chloride 105 (98-107) mmol/L Carbon Dioxide 24.7 (21.0-32.0) mmol/L BUN 16 (7.0-18.0) mg/dL Creatinine 1.1 (0.8-1.3) mg/dL Est Cr Clr Drug Dosing 95.86 mL/min Estimated GFR (MDRD) > 60.0 ml/min Glucose 136 H (74-106) mg/dL Calcium 9.3 (8.5-10.1) mg/dL Total Bilirubin 0.4 (0.2-1.0) mg/dL AST 26 (15-37) IU/L ALT 58 (14-63) IU/L Alkaline Phosphatase 81 (46-116) U/L Troponin I < 0.050 (0.000-0.056) ng/mL Total Protein 7.7 (6.4-8.2) g/dL Albumin 3.9 (3.4-5.0) g/dL Globulin 3.8 (2.6-4.0) g/dL Albumin/Globulin Ratio 1.0 (0.9-1.6) Meds: Medications Generic Name Dose Route Start Last Admin Trade Name Freq PRN Reason Stop Dose Admin Sodium Chloride 10 ml 10/29/18 12:17 10/29/18 12:28 Saline Flush FLUSH 10 ml ASDIRECTED PRN Administration Keep Vein Open Sodium Chloride 2.5 ml 10/29/18 12:17 10/29/18 12:28 Saline Flush FLUSH 2.5 ml ASDIRECTED PRN Administration Keep Vein Open Discontinued Medications Generic Name Dose Route Start Last Admin Trade Name Freq PRN Reason Stop Dose Admin Sodium Chloride 1,000 mls @ 999 mls/hr 10/29/18 12:17 10/29/18 12:28 Normal Saline IV 10/29/18 13:17 999 mls/hr STAT ONE Administration Departure - Departure Time of Disposition: 13:30 Disposition: Home, Self-Care 01 Condition: Good Clinical Impression: Weakness, Dizziness, Encounter for medical screening examination - Discharge Information Referrals: PCP,Unknown [Primary Care Provider] - Forms: ED Department Discharge Additional Instructions: The following information is given to patients seen in the emergency department who are being discharged to home. This information is to outline your options for follow-up care. We provide all patients seen in our emergency department with a follow-up referral. The need for follow-up, as well as the timing and circumstances, are variable depending upon the specifics of your emergency department visit. If you don't have a primary care physician on staff, we will provide you with a referral. We always advise you to contact your personal physician following an emergency department visit to inform them of the circumstance of the visit and for follow-up with them and/or the need for any referrals to a consulting specialist. The emergency department will also refer you to a specialist when appropriate. This referral assures that you have the opportunity for followup care with a specialist. All of these measure are taken in an effort to provide you with optimal care, which includes your followup. Under all circumstances we always encourage you to contact your private physician who remains a resource for coordinating your care. When calling for followup care, please make the office aware that this follow-up is from your recent emergency room visit. If for any reason you are refused follow-up, please contact the [facility] emergency department at and asked to speak to the emergency department charge nurse. Follow-up primary medical doctor 1-2 days push fluids and return as needed as discussed - My Orders Last 24 Hours: My Active Orders 10/29/18 12:17 Cardiac Monitoring [RC] . DIRECTED EKG Documentation Completion [RC] STAT UA RFX BINH AND CULT IF INDIC [URIN] Stat Sodium Chloride 0.9% [Saline Flush] 10 ml FLUSH ASDIRECTED PRN Sodium Chloride 0.9% [Saline Flush] 2.5 ml FLUSH ASDIRECTED PRN Saline Lock Insert [OM.PC] Stat - Assessment/Plan Last 24 Hours: My Active Orders 10/29/18 12:17 Cardiac Monitoring [RC] . DIRECTED EKG Documentation Completion [RC] STAT UA RFX BINH AND CULT IF INDIC [URIN] Stat Sodium Chloride 0.9% [Saline Flush] 10 ml FLUSH ASDIRECTED PRN Sodium Chloride 0.9% [Saline Flush] 2.5 ml FLUSH ASDIRECTED PRN Saline Lock Insert [OM.PC] Stat
[2018-10-29 12:50] LABS: CHLORIDE,CL 105 mmol/L (98-107); SODIUM,NA 140 mmol/L (136-148)
--- NOTE | 2018-10-29 13:05 | CR ---
HISTORY: Chest pain. Shortness of breath. TECHNIQUE: Portable frontal view the chest. COMPARISON: Chest x-ray 05/28/2018. FINDINGS: Low lung volumes. No airspace consolidation. No pleural effusion or pneumothorax. Pulmonary vasculature and cardiomediastinal silhouette are within normal limits. IMPRESSION: Low lung volumes. No acute findings otherwise. Dictated by Shaheed العلي MD @ Oct 29 2018 1:03PM Signed by Dr. Shaheed العلي @ Oct 29 2018 1:03PM
[2018-10-29 13:43] VITALS: BP 130/80
== END 2018-10-29 13:43 | disposition home or self-care (01) ==
LOC: MW.ED 12:11
DX: R53.1 Weakness (principal); R42 Dizziness and giddiness; Z88.4 Allergy status to anesthetic agent
CPT/HCPCS: 36415; 71045; 80053; 82375; 84484; 85025; 93005; 96360; 99284; J7040